=== PATIENT | male | born 1995 | race African-American/Black ===

== ENCOUNTER 2016-08-28 23:28 | Emergency (ER) | payer MEDICAID ==
[~2016-08-28] VITALS: Ht 172.7 cm; Wt 89.0 kg
[2016-08-29] MEDS ORDERED: LIDOCAINE 1%-EPI 1:100K, 20ML INFIL ONE
[2016-08-29] MEDS ORDERED: LIDOCAINE 1%-EPI 1:100K, 20ML ONE (00:01)
[2016-08-29] MEDS ORDERED: DIPH,PERTUSS(ACELL),TET VAC/PF 0.5 ML IM-VACC ONE ×2 (00:57)
[2016-08-29 01:23] VITALS: BP 134/86
== END 2016-08-29 01:26 | disposition home or self-care (01) ==
LOC: ED 23:59
DX: S01.81XA Laceration without foreign body of other part of head, initial encounter (principal); Y04.8XXA Assault by other bodily force, initial encounter; Y93.89 Activity, other specified; Y99.8 Other external cause status; Y92.410 Unspecified street and highway as the place of occurrence of the external cause
CPT/HCPCS: 12011; 70450; 90471; 90715